=== PATIENT | male | born 1995 | race Caucasian/White ===

== ENCOUNTER 2018-10-24 07:06 | Emergency (ER) | payer OTHER ==
--- NOTE | 2018-10-24 07:38 | ER Report ---
History and Physical Time Seen By MD: 07:38 Hx. of Stated Complaint: PAIN ABOVE UMBILICUS RADIATING TO R SIDE WITH MOVEMENT HPI/ROS CHIEF COMPLAINT: Periumbilical abdominal pain which started this morning HISTORY OF PRESENT ILLNESS: Patient is a 23-year-old male here with complaints of severe periumbilical abdominal pain which has since dissipated. Patient denies prior history of abdominal surgeries. Patient denies nausea, vomiting, fevers or chills. Patient denies prior history of similar pain. REVIEW OF SYSTEMS: Constitutional: No fever, no chills. Eyes: No discharge. ENT: No sore throat. Cardiovascular: No chest pain, no palpitations. Respiratory: No cough, no shortness of breath. Gastrointestinal: Significant periumbilical abdominal pain Genitourinary: No hematuria. Musculoskeletal: No back pain. Skin: No rashes. Neurological: No headache. Allergies: Coded Allergies: No Known Drug Allergies (Unverified , 10/24/18) Home Meds Active Scripts Ondansetron 4 Mg Odt (ONDANSETRON 4 MG ODT) 4 Mg Tab.rapdis, 4 MG PO ONCE, #20 TAB Prov:ANTHONY STONE DO 10/24/18 Metronidazole (FLAGYL) 500 Mg Tablet, 500 MG PO TID for 7 Days, #21 TAB Prov:ANTHONY STONE S DO 10/24/18 Ciprofloxacin Hcl 500 Mg Tab (CIPRO 500 MG TAB) 500 Mg Tablet, 500 MG PO BID for 7 Days, #14 TAB Prov:STONE,ANTHONY Ge DO 10/24/18 Hx Substance Use Disorder: Yes (WEED) Hx Alcohol Use: Yes (USUALLY EVERY DAY) Constitutional Vital Sign - Last 24 Hours 10/24/18 10/24/18 10/24/18 10/24/18 07:06 07:16 07:17 07:21 Temp 97.5 Pulse ??? 51 52 Resp 14 B/P (MAP) 119/74 119/74 (89) Pulse Ox 96 97 O2 Delivery Room Air 10/24/18 10/24/18 10/24/18 10/24/18 07:36 07:51 07:55 08:00 Pulse 60 59 B/P (MAP) 118/72 (87) 114/70 (85) Pulse Ox 95 95 10/24/18 10/24/18 10/24/18/26/19 08:06 08:21 08:30 08:36 Pulse 61 59 57 B/P (MAP) ???/??? (0115) Pulse Ox 94 93 94 10/24/18 10/24/18 10/24/18 10/24/18 08:41 09:00 09:11 09:26 Pulse 58 55 61 B/P (MAP) 115/71 (86) Pulse Ox 95 95 95 10/24/18 10/24/18 09:30 09:41 Pulse 61 B/P (MAP) 115/77 (90) Pulse Ox 94 Physical Exam General Appearance: The patient is alert, has no immediate need for airway protection and no signs of toxicity. No acute distress Eyes: Pupils equal and round no pallor or injection. ENT, Mouth: Mucous membranes are moist. Respiratory: There are no retractions, lungs are clear to auscultation. Cardiovascular: Regular rate and rhythm. Gastrointestinal: + Mild periumbilical abdominal tenderness, no rebound or guarding or distention Neurological: No focal neurological findings Skin: Warm and dry, no rashes. Musculoskeletal: Neck is supple non tender. Extremities are nontender, nonswollen and have full range of motion. DIFFERENTIAL DIAGNOSIS: After history and physical exam differential diagnosis was considered for abdominal pain including but not limited to appendicitis, cholecystitis, gastritis and urinary tract infection. Medical Decision Making Data Points Result Diagram: 10/24/1872010/24/18720 Laboratory Hematology Test 10/24/18 07:18 10/24/18 07:21 Urine Color Yellow Urine Clarity Clear Urine pH 6.0 pH (4.8-9.5) Urine Specific [place] 1.014 Urine Protein Negative mg/dL (NEGATIVE) Urine Glucose (UA) Negative mg/dL (NEGATIVE) Urine Ketones Negative mg/dL (NEGATIVE) Urine Blood Negative (NEGATIVE) Urine Nitrite Negative (NEGATIVE) Urine Bilirubin Negative (NEGATIVE) Urine Urobilinogen Negative mg/dL (0.2-1.9) Urine Leukocyte Esterase Negative (NEGATIVE) Urine RBC None /HPF (0-2/HPF) Urine WBC 1 /HPF (0-5/HPF) Urine Squamous Epithelial Cells None /LPF (</=FEW) Urine Bacteria Negative /HPF (NONE-FEW) Urine Hyaline Casts Few /LPF (NONE-FEW) Urine Mucus None /HPF (NONE-FEW) Red Blood Count 5.41 M/uL (4.00-5.60) Mean Corpuscular Volume 94.0 fL (80.0-96.0) Mean Corpuscular Hemoglobin 31.8 pg (26.0-33.0) Mean Corpuscular Hemoglobin Concent 33.8 g/dL (32.0-36.0) Red Cell Distribution Width 12.3 % (11.5-14.5) Mean Platelet Volume 8.7 fL (7.2-11.1) Neutrophils (%) (Auto) 42.1 % (39.4-72.5) Lymphocytes (%) (Auto) 39.6 % (17.6-49.6) Monocytes (%) (Auto) 11.3 % (4.1-12.4) Eosinophils (%) (Auto) 5.9 % (0.4-6.7) Basophils (%) (Auto) 1.1 % (0.3-1.4) Nucleated RBC Relative Count (auto) 0.0 /100WBC Neutrophils # (Auto) 2.5 K/uL (2.0-7.4) Lymphocytes # (Auto) 2.4 K/uL (1.3-3.6) Monocytes # (Auto) 0.7 K/uL (0.3-1.0) Eosinophils # (Auto) 0.4 K/uL (0.0-0.5) Basophils # (Auto) 0.1 K/uL (0.0-0.1) Nucleated RBC Absolute Count (auto) 0.00 K/uL Sodium Level 138 mmol/L (137-145) Potassium Level 3.5 mmol/L (3.5-5.0) Chloride Level 101 mmol/L (98-107) Carbon Dioxide Level 28 mmol/L (22-30) Blood Urea Nitrogen 15 mg/dl (9-21) Creatinine 0.90 mg/dl (0.66-1.25) Glomerular Filtration Rate Calc > 60.0 Random Glucose 117 mg/dl (75-110) Calcium Level 9.7 mg/dl (8.4-10.2) Total Bilirubin 0.7 mg/dl (0.2-1.3) Aspartate Amino Transf (AST/SGOT) 31 U/L (0-35) Alanine Aminotransferase (ALT/SGPT) 39 U/L (0-56) Alkaline Phosphatase 62 U/L (0-126) C-Reactive Protein < 0.5 mg/dl (<1.0) Total Protein 8.0 g/dl (6.3-8.2) Albumin 4.9 g/dl (3.5-5.0) Lipase 56 U/L (23-300) Chemistry Test 10/24/18 07:18 10/24/18 07:21 Urine Color Yellow Urine Clarity Clear Urine pH 6.0 pH (4.8-9.5) Urine Specific [place] 1.014 Urine Protein Negative mg/dL (NEGATIVE) Urine Glucose (UA) Negative mg/dL (NEGATIVE) Urine Ketones Negative mg/dL (NEGATIVE) Urine Blood Negative (NEGATIVE) Urine Nitrite Negative (NEGATIVE) Urine Bilirubin Negative (NEGATIVE) Urine Urobilinogen Negative mg/dL (0.2-1.9) Urine Leukocyte Esterase Negative (NEGATIVE) Urine RBC None /HPF (0-2/HPF) Urine WBC 1 /HPF (0-5/HPF) Urine Squamous Epithelial Cells None /LPF (</=FEW) Urine Bacteria Negative /HPF (NONE-FEW) Urine Hyaline Casts Few /LPF (NONE-FEW) Urine Mucus None /HPF (NONE-FEW) White Blood Count 6.0 k/uL (4.5-11.0) Red Blood Count 5.41 M/uL (4.00-5.60) Hemoglobin 17.2 g/dL (14.0-18.0) Hematocrit 50.8 % (42.0-52.0) Mean Corpuscular Volume 94.0 fL (80.0-96.0) Mean Corpuscular Hemoglobin 31.8 pg (26.0-33.0) Mean Corpuscular Hemoglobin Concent 33.8 g/dL (32.0-36.0) Red Cell Distribution Width 12.3 % (11.5-14.5) Platelet Count 213 K/uL (150-450) Mean Platelet Volume 8.7 fL (7.2-11.1) Neutrophils (%) (Auto) 42.1 % (39.4-72.5) Lymphocytes (%) (Auto) 39.6 % (17.6-49.6) Monocytes (%) (Auto) 11.3 % (4.1-12.4) Eosinophils (%) (Auto) 5.9 % (0.4-6.7) Basophils (%) (Auto) 1.1 % (0.3-1.4) Nucleated RBC Relative Count (auto) 0.0 /100WBC Neutrophils # (Auto) 2.5 K/uL (2.0-7.4) Lymphocytes # (Auto) 2.4 K/uL (1.3-3.6) Monocytes # (Auto) 0.7 K/uL (0.3-1.0) Eosinophils # (Auto) 0.4 K/uL (0.0-0.5) Basophils # (Auto) 0.1 K/uL (0.0-0.1) Nucleated RBC Absolute Count (auto) 0.00 K/uL Glomerular Filtration Rate Calc > 60.0 Calcium Level 9.7 mg/dl (8.4-10.2) Total Bilirubin 0.7 mg/dl (0.2-1.3) Aspartate Amino Transf (AST/SGOT) 31 U/L (0-35) Alanine Aminotransferase (ALT/SGPT) 39 U/L (0-56) Alkaline Phosphatase 62 U/L (0-126) C-Reactive Protein < 0.5 mg/dl (<1.0) Total Protein 8.0 g/dl (6.3-8.2) Albumin 4.9 g/dl (3.5-5.0) Lipase 56 U/L (23-300) Urinalysis Test 10/24/18 07:18 Urine Color Yellow Urine Clarity Clear Urine pH 6.0 pH (4.8-9.5) Urine Specific [place] 1.014 Urine Protein Negative mg/dL (NEGATIVE) Urine Glucose (UA) Negative mg/dL (NEGATIVE) Urine Ketones Negative mg/dL (NEGATIVE) Urine Blood Negative (NEGATIVE) Urine Nitrite Negative (NEGATIVE) Urine Bilirubin Negative (NEGATIVE) Urine Urobilinogen Negative mg/dL (0.2-1.9) Urine Leukocyte Esterase Negative (NEGATIVE) Urine RBC None /HPF (0-2/HPF) Urine WBC 1 /HPF (0-5/HPF) Urine Squamous Epithelial Cells None /LPF (</=FEW) Urine Bacteria Negative /HPF (NONE-FEW) Urine Hyaline Casts Few /LPF (NONE-FEW) Urine Mucus None /HPF (NONE-FEW) EKG/Imaging Imaging Location: [facility] [place] Patient: Jhoan Coombs : 1995 Visit/Account:[id number] Date of Sevice: 10/24/2018 CT ABDOMEN PELVIS W/ CON COMPARISON: None. HISTORY: Periumbilical pain, right lower quadrant pain for 3 to 4 hours which has improved since being in the ED TECHNIQUE: Axial CT abdomen and pelvis with intravenous contrast. Coronal and sagittal reformats. One of the following dose optimization techniques was utilized in the performance of this exam: automated exposure control; adjustment of the mA and/or kV according to patient size; or use of iterative reconstruc tion technique. Specific details can be referenced in the facility's radiology CT exam operational policy. CONTRAST: 75 mL of IV Isovue-370. FINDINGS: LUNG BASES: Negative. LIVER: Negative. BILIARY: Negative. SPLEEN: Negative. PANCREAS: Negative. ADRENALS: Negative. KIDNEYS: Negative. GI/MESENTERY: Negative. No bowel wall thickening, obstruction or discrete mass. There is no localized fat stranding, free air or abscess. Visualized appendix is normal although it is incompletely visualized and there is a trace amount of free fluid in the right paracolic gutter near the cecum.. VASCULAR: Negative. LYMPH NODES: Negative. BLADDER: Negative. PELVIC ORGANS: Negative. BONES: Negative. OTHER: Negative. IMPRESSION: 1. Trace free fluid adjacent to the cecum which is abnormal in a male, probably reactive fluid due to a low-grade inflammatory process which is otherwise not directly evident. 2. Visualized appendix is normal although it is incompletely seen. There is no bowel wall thickening. ED Course/Re-evaluation ED Course Patient is a 23-year-old male here with complaints of periumbilical abdominal pain which started this morning and has since dissipated. Patient denies prior history of abdominal surgeries, medical problems. Abdominal exam was unremarkable, labs showed no leukocytosis, CRP was negative. CT imaging partially visualized the appendix and showed no distention or appendicolith. Trace fluid was identified next to the cecum which is an abnormal finding but nonspecific. I discussed the patient with the on-call physician Dr. Nuñez who agreed with my plan to treat the patient with Cipro and Flagyl and follow up in one week in his office. I updated the patient regarding these findings and he voiced understanding. Prescription provided for Cipro and Flagyl. Return precautions provided Decision to Disposition Date: Oct 24, 2018 Decision to Disposition Time: 09:36 Depart Departure Latest Vital Signs Vital Signs Date Time Temp Pulse Resp B/P (MAP) Pulse Ox O2 Delivery O2 Flow Rate FiO2 10/24/18 09:41 61 94 10/24/18 09:30 115/77 (90) 10/24/18 07:16 97.5 14 Room Air Impression: Primary Impression: Colitis Condition: Improved Disposition: HOME OR SELF-CARE New Scripts Ondansetron 4 Mg Odt (ONDANSETRON 4 MG ODT) 4 Mg Tab.rapdis 4 MG PO ONCE, #20 TAB Prov: ANTHONY STONE DO 10/24/18 Metronidazole (FLAGYL) 500 Mg Tablet 500 MG PO TID for 7 Days, #21 TAB Prov: ANTHONY STONE DO 10/24/18 Ciprofloxacin Hcl 500 Mg Tab (CIPRO 500 MG TAB) 500 Mg Tablet 500 MG PO BID for 7 Days, #14 TAB Prov: ANTHONY STONE DO 10/24/18 Patient Instructions: Colitis (ED) Additional Instructions: Please drink plenty of water to maintain hydration. Please take ciprofloxacin 1 tablet twice daily for 7 days, metronidazole 1 tablet 3 times daily for 7 days, please avoid alcohol while on this medication as it may cause a reaction. You may take ondansetron 1 tablet every 4-6 hours as needed if you develop nausea or vomiting. You may take Tylenol or naproxen for primary pain control. Please follow-up with your family doctor in the next week. Please return immediately if you develop inability to keep down food or fluids, fevers, worsening abdominal pain, blood in the stools or urine. CT imaging impression 1. Trace free fluid adjacent to the cecum which is abnormal in a male, probably reactive fluid due to a low-grade inflammatory process which is otherwise not directly evident. 2. Visualized appendix is normal although it is incompletely seen. There is no bowel wall thickening. ANTHONY STONE DO Oct 24, 2018 07:39
[2018-10-24 07:45] LABS: PLATELET COUNT, AUTOMATED 213 K/uL (150-450)
[2018-10-24] MEDS ORDERED: IOPAMIDOL 76% 100 ML INFUS BTL 100 ML ONE (08:09)
--- NOTE | 2018-10-24 08:57 | RADIOLOGY IMAGING REPORT ---
FACILITY: [facility] [place]IENT NAME: Jhoan Coombs : 1995 MR: [id number] V: [id number] EXAM DATE: ORDERING PHYSICIAN: ANTHONY STONE TECHNOLOGIST: Location: [facility] Patient: Jhoan Coombs : 1995 Visit/Account:[id number] Date of Sevice: 10/24/2018 CT ABDOMEN PELVIS W/ CON COMPARISON: None. HISTORY: Periumbilical pain, right lower quadrant pain for 3 to 4 hours which has improved since yakelin ng in the ED TECHNIQUE: Axial CT abdomen and pelvis with intravenous contrast. Coronal and sagittal reformats. O ne of the following dose optimization techniques was utilized in the performance of this exam: autom ated exposure control; adjustment of the mA and/or kV according to patient size; or use of iterative reconstruction technique. Specific details can be referenced in the facility's radiology CT exam ope rational policy. CONTRAST: 75 mL of IV Isovue-370. FINDINGS: LUNG BASES: Negative. LIVER: Negative. BILIARY: Negative. SPLEEN: Negative. PANCREAS: Negative. ADRENALS: Negative. KIDNEYS: Negative. GI/MESENTERY: Negative. No bowel wall thickening, obstruction or discrete mass. There is no locali zed fat stranding, free air or abscess. Visualized appendix is normal although it is incompletely vi sualized and there is a trace amount of free fluid in the right paracolic gutter near the cecum.. VASCULAR: Negative. LYMPH NODES: Negative. BLADDER: Negative. PELVIC ORGANS: Negative. BONES: Negative. OTHER: Negative. IMPRESSION: 1. Trace free fluid adjacent to the cecum which is abnormal in a male, probably reactive fluid due t o a low-grade inflammatory process which is otherwise not directly evident. 2. Visualized appendix is normal although it is incompletely seen. There is no bowel wall thickenin g. Report Dictated By: Jorden Veloz at 10/24/2018 8:46 AM Report E-Signed By: Jorden Veloz at 10/24/2018 8:51 AM WSN:[id number]
[2018-10-24 09:30] VITALS: BP 115/77
[2018-10-24] MEDS ORDERED: ONDA4TAB9 PO (09:39)
[2018-10-24] MEDS ORDERED: CIPR-344 PO (09:39)
[2018-10-24] MEDS ORDERED: METR-1 PO (09:39)
== END 2018-10-24 09:45 | disposition home or self-care (01) ==
LOC: ER 07:42
DX: K52.9 Noninfective gastroenteritis and colitis, unspecified (principal)
CPT/HCPCS: 74177; 81001; 83690; 85025; 86140; 99284; Q9967; 82040; 82247; 82310; 82374; 82435; 82565; 82947; 84075; 84132; 84155; 84295; 84450; 84460; 84520